=== PATIENT | male | born 1985 | race Caucasian/White ===

== ENCOUNTER 2019-08-18 18:23 | Emergency (ER) | payer BC, OTHER ==
[2019-08-18 18:31] VITALS: RESP 18
[2019-08-18] MEDS ORDERED: SODIUM CHLORIDE 0.9% 1,000 ML IV STA (18:33)
[2019-08-18] MEDS ORDERED: KETOROLAC 30 MG/ML 1 ML VIAL IVP STA (18:33)
[2019-08-18] MEDS ORDERED: ONDANSETRON 4 MG/2 ML VIAL IVP STA (18:56)
[2019-08-18] MEDS ORDERED: diphenhydrAMINE 50 MG/ML 1 ML VIAL IVP STA (18:56)
--- NOTE | 2019-08-18 19:03 | ED ---
General Adult HPI - General Chief complaint: Headache Stated complaint: Headache x5 days Time Seen by Provider: 08/18/19 18:33 Source: patient Mode of arrival: ambulatory Limitations: no limitations - History of Present Illness Initial comments: Dictation was produced using [employer] dictation software. please excuse any grammatical, word or spelling errors. Chief Complaint: 34-year-old male presents with headache. History of Present Illness: 34-year-old male who presents to emergency department for headache. States that his headache has been ongoing for a week. Patient received a [facility] yesterday and discharge with prescription for antibiotics treating sinusitis. Patient states that today that his headache Especially worse today.. Patient has a history of headaches. States that it feels like a vice around his head. States that the pain is starting at his neck and goes up to the front. He does report a throbbing nature. Patient has a headache is worse in the morning. Denies any neck pain or neck stiffness. Den ies any neuro deficits. Does have a cough. The ROS documented in this emergency department record has been reviewed and confirmed by me. Those systems with pertinent positive or negative responses have been documented in the HPI. All other systems are other negative and/or noncontributory. PHYSICAL EXAM: General Impression: Alert and oriented x3, not in acute distress HEENT: Normocephalic atraumatic, extra-ocular movements intact, pupils equal and reactive to light bilaterally, mucous membranes moist. Cardiovascular: Heart regular rate and rhythm, S1&S2 audible, no murmurs, rubs or gallops Chest: Lungs clear to auscultation bilaterally, no rhonchi, no wheeze, no rales Abdomen: Bowel sounds present, abdomen soft, non-tender, non-distended, no organomegaly Musculoskeletal: Pulses present and equal in all extremities, no peripheral edema Motor: no focal deficits noted Neurological: CN II-XII grossly intact, no focal motor or sensory deficits noted, negative Kernig's, negative Brudzinski's, negative lhermitttes. Skin: Intact with no visualized rashes Psych: Normal affect and mood ED course: 34-year-old male presents with headache. Vital signs upon arrival are within acceptable limits.Laboratory evaluation obtained. CBC, metabolic panel is unremarkable. Chest x-ray is nonacute. Computed tomography scan of the brain shows right maxillary and sphenoidal sinusitis. She given headache cocktail with improvement of symptoms. Patient clear for discharge. Patient counseled on sinusitis care. He is told to get nasal sprays from local pharmacy. Also advised to continue taking antibiotics prescribed him from [facility]. Work note provided. He is given referral to ENT for outpatient management of sinusitis. - Related Data Home Medications Medication Instructions Recorded Confirmed Escitalopram [Lexapro] 10 mg PO DAILY 12/13/15 12/13/15 Allergies Allergy/AdvReac Type Severity Reaction Status Date / Time No Known Allergies Allergy Verified 08/18/19 18:31 Review of Systems ROS Statement: Those systems with pertinent positive or pertinent negative responses have been documented in the HPI. ROS Other: All systems not noted in ROS Statement are negative. Past Medical History Past Medical History: No Reported History History of Any Multi-Drug Resistant Organisms: None Reported Past Surgical History: No Surgical Hx Reported Past Psychological History: Anxiety, Depression Smoking Status: Never smoker Past Alcohol Use History: Occasional Past Drug Use History: None Reported General Exam Limitations: no limitations Course Vital Signs 08/18/19 18:29 Temperature 98.1 F Pulse Rate 74 Respiratory 18 Rate Blood Pressure 151/68 O2 Sat by Pulse 98 Oximetry Medical Decision Making - Lab Data Result diagrams: 08/18/19 19:06 08/18/19 19:06 Lab Results 08/18/19 08/18/19 Range/Units 19:06 19:06 WBC 9.7 (3.8-10.6) k/uL RBC 4.90 (4.30-5.90) m/uL Hgb 14.4 (13.0-17.5) gm/dL Hct 41.7 (39.0-53.0) % MCV 85.1 (80.0-100.0) fL MCH 29.3 (25.0-35.0) pg MCHC 34.5 (31.0-37.0) g/dL RDW 12.5 (11.5-15.5) % Plt Count 241 (150-450) k/uL Neutrophils % 73 % Lymphocytes % 18 % Monocytes % 5 % Eosinophils % 2 % Basophils % 0 % Neutrophils # 7.0 (1.3-7.7) k/uL Lymphocytes # 1.8 (1.0-4.8) k/uL Monocytes # 0.5 (0-1.0) k/uL Eosinophils # 0.2 (0-0.7) k/uL Basophils # 0.0 (0-0.2) k/uL Sodium 140 (137-145) mmol/L Potassium 3.7 (3.5-5.1) mmol/L Chloride 107 (98-107) mmol/L Carbon Dioxide 24 (22-30) mmol/L Anion Gap 9 mmol/L BUN 11 (9-20) mg/dL Creatinine 0.80 (0.66-1.25) mg/dL Est GFR (CKD-EPI)AfAm >90 (>60 ml/min/1.73 sqM) Est GFR (CKD-EPI)NonAf >90 (>60 ml/min/1.73 sqM) Glucose 98 (74-99) mg/dL Calcium 9.4 (8.4-10.2) mg/dL Disposition Clinical Impression: Sinusitis Disposition: HOME SELF-CARE Condition: Good Instructions (If sedation given, give patient instructions): Acute Headache (ED) Additional Instructions: Afrin nasal spray. use as directed on instruction provided on box. take antibiotics prescribed by [facility]. Is patient prescribed a controlled substance at d/c from ED?: No Referrals: James Marlow MD [STAFF PHYSICIAN] - 1-2 days Time of Disposition: 20:34
[2019-08-18 19:17] LABS: Basophils % (A) 0 %; Eosinophils # (A) 0.2 k/uL (0-0.7); Eosinophils % (A) 2 %; HCT 41.7 % (39.0-53.0); HGB 14.4 gm/dL (13.0-17.5); Lymphocytes # (A) 1.8 k/uL (1.0-4.8); Lymphocytes % (A) 18 %; MCH 29.3 pg (25.0-35.0); MCHC 34.5 g/dL (31.0-37.0); MCV 85.1 fL (80.0-100.0); Mean Platelet Volume 8.1; Monocytes # (A) 0.5 k/uL (0-1.0); Monocytes % (A) 5 %; Neutrophils % (A) 73 %; Platelet Count 241 k/uL (150-450); RDW 12.5 % (11.5-15.5); WBC 9.7 k/uL (3.8-10.6)
[2019-08-18 19:26] LABS: African American GFR (CKD) >90 (>60 ml/min/1.73 sqM); Anion Gap 9 mmol/L; Blood Urea Nitrogen 11 mg/dL (9-20); Calcium 9.4 mg/dL (8.4-10.2); Carbon Dioxide 24 mmol/L (22-30); Chloride 107 mmol/L (98-107); Glucose 98 mg/dL (74-99); Non-African American GFR(CKD) >90 (>60 ml/min/1.73 sqM); Potassium 3.7 mmol/L (3.5-5.1); Sodium 140 mmol/L (137-145)
--- NOTE | 2019-08-18 20:03 | CT ---
EXAMINATION TYPE: CT brain wo con DATE OF EXAM: 08/18/2019 COMPARISON: None INDICATION: ARCHIBALD x5 days DLP: 1184.4 mGycm, Automated exposure control for dose reduction was used. CONTRAST: None CT of the brain is performed utilizing 3 mm thick sections through the posterior fossa and 3 mm thick sections through the remaining calvarium. Study is performed within 24 hours of arrival to the hosp [facility]. No abnormal hyperdensity is present to suggest an acute intracranial hemorrhage. No mass lesion is evident. No acute infarcts are evident. Ventricles and sulci are appropriate for the patient age. Air-fluid levels are within the right maxillary sinus, right sphenoid sinus. There is mucosal thicken ing within left sphenoid sinus and through bilateral ethmoid air cells. Mastoid air cells are clear. IMPRESSIONS: 1. Normal CT Brain 2. Clinical correlation recommended for right maxillary and sphenoid sinusitis.
--- NOTE | 2019-08-18 20:04 | XR ---
EXAMINATION TYPE: XR chest 2V DATE OF EXAM: 08/18/2019 COMPARISON: None INDICATION: Cough TECHNIQUE: Frontal and lateral views of the chest are obtained. FINDINGS: The heart size is normal. The pulmonary vasculature is normal. The lungs are clear. IMPRESSION: 1. No acute pulmonary process.
[2019-08-18] MEDS ORDERED: OXYMETAZOLINE 0.05% NASL SPRAY 1 SPRAY BOTTLE NASAL STA (20:27)
[2019-08-18 21:07] VITALS: BP 144/66; PULSE 68; TEMP 98.4
== END 2019-08-18 21:06 | disposition home or self-care (01) ==
LOC: EC 18:23
DX: J32.4 Chronic pansinusitis (principal); F41.9 Anxiety disorder, unspecified; F32.9 Major depressive disorder, single episode, unspecified; Z79.899 Other long term (current) drug therapy
CPT/HCPCS: 36415; 80048; 85025; 71046; 70450; 99284; 96374; 96375 ×2; 96361 ×2; J1200; J2405; J1885

== ENCOUNTER 2024-02-07 12:10 | Emergency (ER) | payer BC, OTHER ==
[2024-02-07 12:15] VITALS: TEMP 98.2
--- NOTE | 2024-02-07 12:17 | ED ---
Wound/Laceration HPI - General Chief Complaint: Wound/Laceration Stated Complaint: R hand finger injury Time Seen by Provider: 02/07/24 12:17 Source: patient, RN notes reviewed Mode of arrival: ambulatory Limitations: no limitations - History of Present Illness Initial Comments: This is a 39-year-old male presents emergency department chief complaint of a injury to his right third digit. Patient states that yesterday evening he was moving cinderblocks in his backyard where he hit his right third finger in between 2 blocks resulting in a laceration. Patient was evaluated at [facility] urgent care this morning where he was advised to report to the emergency department for further evaluation of potential open fracture. Patient is denying paresthesias of the finger, and she motion is intact with mild pain. Patient is unaware when his last tetanus vaccination was. No other acute complaints at this time. - Related Data Home Medications Medication Instructions Recorded Confirmed Escitalopram [Lexapro] 10 mg PO DAILY 12/13/15 12/13/15 Previous Rx's Medication Instructions Recorded Cephalexin [Keflex] 500 mg PO Q6HR #40 cap 02/07/24 Allergies Allergy/AdvReac Type Severity Reaction Status Date / Time No Known Allergies Allergy Verified 02/07/24 12:14 Review of Systems ROS Statement: Those systems with pertinent positive or pertinent negative responses have been documented in the HPI. ROS Other: All systems not noted in ROS Statement are negative. Past Medical History Past Medical History: No Reported History History of Any Multi-Drug Resistant Organisms: None Reported Past Surgical History: No Surgical Hx Reported Past Psychological History: Anxiety, Depression Smoking Status: Never smoker Past Alcohol Use History: Occasional Past Drug Use History: None Reported General Exam Limitations: no limitations General appearance: alert, in no apparent distress Head exam: Present: atraumatic, normocephalic, normal inspection Eye exam: Present: normal appearance, PERRL, EOMI. Absent: scleral icterus, conjunctival injection, periorbital swelling ENT exam: Present: normal exam, mucous membranes moist Neck exam: Present: normal inspection. Absent: tenderness, meningismus, lymphadenopathy Respiratory exam: Present: normal lung sounds bilaterally. Absent: respiratory distress, wheezes, rales, rhonchi, stridor Cardiovascular Exam: Present: regular rate, normal rhythm, normal heart sounds. Absent: systolic murmur, diastolic murmur, rubs, gallop, clicks GI/Abdominal exam: Present: soft, normal bowel sounds. Absent: distended, tenderness, guarding, rebound, rigid Right Hand Wrist exam: Present: tenderness, swelling, laceration (3.5 cm lac medial 3rd finger, 0.5 cm lac of distal tip finger), deformity. Absent: full ROM, erythema Neuro motor exam: Present: wrist extension intact, thumb opposition intact Vascular: Present: normal capillary refill, radial pulse (2+). Absent: vascular compromise Back exam: Present: normal inspection Neurological exam: Present: alert, oriented X3, CN II-XII intact Course Vital Signs 02/07/24 02/07/24 12:11 13:42 Temperature 98.2 F Pulse Rate 84 78 Respiratory 16 18 Rate Blood Pressure 138/81 122/68 O2 Sat by Pulse 100 99 Oximetry Procedures - Laceration Laceration #1 Consent Obtained: verbal consent Indication: laceration Site: hand Size (cm): 4 Depth: simple, single layer Anesthetic Used: lidocaine 1% Anesthesia Technique: local infiltration Amount (mls): 4 Pre-repair: wound explored, irrigated extensively Type of Sutures: nylon Size of Sutures: 4-0 Number of Sutures: 9 Technique: simple, interrupted Patient Tolerated Procedure: well, no complications - Orthopedic Splinting/Casting Injury #1 Side: right Upper Extremity Injury Location: finger Upper Extremity Immobilizer: aluminum form splint Medical Decision Making - Medical Decision Making Was pt. sent in by a medical professional or institution (SALVADOR Prabhakar, MAINTENANCE AND UTILITIES SUPERVISOR, urgent care, hospital, or usp...) When possible be specific @ -Was advised by [facility] to report to the emergency department for further evaluation of potential open fracture of the right third digit. Did you speak to anyone other than the patient for history (EMS, parent, family, police, friend...)? What history was obtained from this source @ -No Did you review nursing and triage notes (agree or disagree)? Why? @ -I reviewed and agree with nursing and triage notes Were old charts reviewed (outside hosp., previous admission, EMS record, old EKG, old radiological studies, urgent care reports/EKG's, usp records)? Report findings @ -No old charts were reviewed Differential Diagnosis (chest pain, altered mental status, abdominal pain women, abdominal pain men, vaginal bleeding, weakness, fever, dyspnea, syncope, headache, dizziness, GI bleed, back pain, seizure, CVA, palpatations, mental health, musculoskeletal)? @ -Differential Musculoskeletal Muscular strain, contusion, ligament sprain, fracture, arthritis, septic arthritis, bursitis, cellulitis, muscle spasm, nerve compression, DVT, arterial occlusion, herpes zoster, electrolyte abnormality, tumor.... This is not meant to be in all inclusive list EKG interpreted by me (3pts min.). @ -None X-rays interpreted by me (1pt min.). @ -X-ray of the right third finger reveals a nondisplaced comminuted fracture of the third distal phalanx tuft with associated soft tissue swelling. CT interpreted by me (1pt min.). @ -None done U/S interpreted by me (1pt. min.). @ -None done What testing was considered but not performed or refused? (CT, X-rays, U/S, labs)? Why? @ -None What meds were considered but not given or refused? Why? @ -None Did you discuss the management of the patient with other professionals (professionals i.e. , PA, MAINTENANCE AND UTILITIES SUPERVISOR, lab, RT, psych nurse, medical social worker, golf club head former, teacher, escrow officer, shelter case manager)? Give summary @ -No Was smoking cessation discussed for >3mins.? @ -No Was critical care preformed (if so, how long)? @ -No Were there social determinants of health that impacted care today? How? (Homelessness, low income, unemployed, alcoholism, drug addiction, transportation, low edu. Level, literacy, decrease access to med. care, group home, rehab)? @ -No Was there de-escalation of care discussed even if they declined (Discuss DNR or withdrawal of care, Hospice)? DNR status @ -No What co-morbidities impacted this encounter? (DM, HTN, Smoking, COPD, CAD, Cancer, CVA, ARF, Chemo, Hep., AIDS, mental health diagnosis, sleep apnea, morbid obesity)? @ -None Was patient admitted / discharged? Hospital course, mention meds given and route, prescriptions, significant lab abnormalities, going to OR and other pertinent info. @ -Discharged. 39-year-old male with a right third finger injury. Due to concern for an open fracture and on examination, patient was provided with a dose of IM antibiotics. Additionally he is given his tetanus vaccine due to being unaware when his most recent was. Patient is sent for imaging and upon arrival to the emergency department. X-ray concerning for a distal tuft fracture of the third finger. Area was thoroughly cleansed and anesthetic was used via 1% lidocaine local infiltration to the area and 9 simple interrupted's were placed in the right third digit. Patient tolerated the seizure well. Area was wrapped in a aluminum form splint was placed over the finger. Patient will be sent a prescription for oral antibiotics. Recommend the patient continue full course of antibiotics as prescribed. He is provided with a referral to a orthopedic hand specialist for further evaluation. All questions answered at bedside and strict return parameters discussed with the patient he is verbalized understanding. Discussed with Dr. Clancy Undiagnosed new problem with uncertain prognosis? @ -No Drug Therapy requiring intensive monitoring for toxicity (Heparin, Nitro, Insulin, Cardizem)? @ -No Were any procedures done? @ -local infiltration with lidocaine, simple interrupted sutures, wound irr igation Diagnosis/symptom? @ -Laceration, finger fracture Acute, or Chronic, or Acute on Chronic? @ -acute Uncomplicated (without systemic symptoms) or Complicated (systemic symptoms)? @ -uncomplicated Side effects of treatment? @ -No Exacerbation, Progression, or Severe Exacerbation? @ -No Poses a threat to life or bodily function? How? (Chest pain, [place], [place], pneumonia, PE, COPD, DKA, ARF, appy, cholecystitis, CVA, Diverticulitis, Homicidal, Suicidal, threat to staff... and all critical care pts) @ -No Disposition Clinical Impression: Laceration, Finger fracture Disposition: HOME SELF-CARE Condition: Good Instructions (If sedation given, give patient instructions): Care For Your Stitches (ED), Laceration (ED), Finger Fracture (ED) Additional Instructions: Return to the emergency department if symptoms worsen or not improve. Follow-up with orthopedic hand specialist on discharge instructions. Complete full course of antibiotics as prescribed. Return to the emergency department or with your primary care provider in the next 7 to 10 days for suture removal. Prescriptions: Cephalexin [Keflex] 500 mg PO Q6HR #40 cap Is patient prescribed a controlled substance at d/c from ED?: No Referrals: Greg Salgado DO [Primary Care Provider] - 1-2 days Adolfo Martinez DO [Doctor of Osteopathic Medicine] - 1-2 days Time of Disposition: 13:36
[2024-02-07] MEDS: DIPH,PERTUS(ACELL)TETVAC-LF 0.5 ML VIAL IM ONE (12:35)
[2024-02-07] MEDS: ceFAZolin 1,000 MG VIAL (IM USE) IM STA (12:35)
--- NOTE | 2024-02-07 12:39 | XR ---
EXAMINATION TYPE: XR finger RT DATE OF EXAM: 02/07/2024 COMPARISON: NONE HISTORY: 31-year-old male right hand digit injury, pain, laceration TECHNIQUE: 3 views coned down right middle finger FINDINGS: There is a nondisplaced comminuted fracture involving the third distal phalangeal tuft with some associated soft tissue swelling at the tip of the middle finger. No additional acute fracture, subluxation, dislocation. No retained radiopaque foreign body seen. IMPRESSION: Nondisplaced comminuted fracture third distal phalangeal tuft with associated soft tissue swelling.
[2024-02-07] MEDS: LIDOCAINE 1% INJ 10MG/ML (20 ML MDV) SQ ONE (12:51)
[2024-02-07 13:42] VITALS: BP 122/68; PULSE 78; RESP 18
== END 2024-02-07 13:42 | disposition home or self-care (01) ==
LOC: EC 12:10
DX: S62.632A Displaced fracture of distal phalanx of right middle finger, initial encounter for closed fracture (principal); Z23 Encounter for immunization; W22.8XXA Striking against or struck by other objects, initial encounter
CPT/HCPCS: 73140; 90715; 12002; 99283; 90471; 96372; J0690; J2001